=== PATIENT | male | born 1955 | race Caucasian/White ===

== ENCOUNTER → 2021-02-20 10:24 | Outpatient (CLI) | payer BC, SELFPAY | PROVIDERS: Visit Provider Nurse Practitioner | DX: Z20.822 Contact with and (suspected) exposure to COVID-19 (principal) | CPT/HCPCS: C9803; U0003; U0005 ==

== ENCOUNTER 2021-08-29 15:09 | Emergency (ER) | payer BC, SELFPAY ==
[2021-08-29 15:26] VITALS: BP 121/66; PULSE 78; RESP 16; TEMP 36.8; O2SAT 95; BMI 34.8
--- NOTE | 2021-08-29 15:39 | HMH.EDUTC ---
[facility] [place] Disposition Clinical Impression: Exposure to COVID-19 virus Disposition: Home, Self-Care Condition on Discharge: Good Instructions: DI for COVID-19 (Suspected or Confirmed ), Preventing the Spread of Coronavirus Discharge Instructions Additional Instructions: Drink plenty of fluids. Take tylenol for pain or fever. Return if you begin to have difficulty breathing or have any worsening concerns. Follow up with your regular doctor. GO TO THE ER FOR ANY WORSENING SYMPTOMS Quarantine until you know the results of your covid-19 test. If it is positive, the health department should call you and give you further instructions about your length of Quarantine and other things. Notify your school or workplace of your results and follow their instructions regarding return to work/school. Referrals: Manpreet Mendoza MD [Primary Care Provider] - Time of Disposition: 15:44 Medical Decision Making - Medical Records Medical records reviewed: No: I reviewed the patient's medical records. - [place] Inquiry Pt receiving controlled substance: No Vital Signs: 08/29/21 15:26 08/29/21 15:46 Temperature 98.3 F 98.3 F Temperature Source Oral Oral Pulse Rate 78 Pulse Rate [Left] 78 Respiratory Rate 16 16 Blood Pressure 121/66 Blood Pressure [Right Arm] 121/66 Blood Pressure Mean [Right Arm] 84 Blood Pressure Source Automatic Cuff 02 Sat by Pulse Oximetry 95 Oxygen Delivery Method Room Air Orders (Tests/Meds): ORDERS Category Date Time Status Covid-19 Nasal PCR ([facility]) Routine Lab 08/29/21 15:27 Received [facility] [place] HPI - General Stated complaint: coivid test,cold Time Seen by Provider: 08/29/21 15:39 Description of Symptoms (Recalled from Triage Doc. by RN): patient comes in for a covid test patient was exposed by daughter who tested positive this am HEENT Symptoms (Recalled from RN notes): No Resp Symptoms (Recalled from RN notes): No Skin Symptoms (Recalled from RN notes): No MS Symptoms (Recalled from RN notes): No Functional Status (Recalled from RN notes): wnl - History of Present Illness Provider Complaint: He states that he has a person in his household that has tested positive for covid-19. He denies any significant symptoms so far, but he has felt like he is getting a cold. He denies any shortness of breath and chest congestion. He has been fully vaccinated. - Related Data Allergies Allergy/AdvReac Type Severity Reaction Status Date / Time No Known Allergies Allergy Verified 08/29/21 15:46 - Worker's Comp Is this a Worker's Comp case?: No [facility] History - Hepatitis A Screen Attestation statement:: This patient has been screened for Hepatitis A risk factors. I have reviewed the patient's past medical history: Yes ROS Obtained: Yes All systems reviewed & no additional complaints - Constitutional Constitutional: Reports as per HPI - Eyes Eyes: Denies eye discharge - ENT Ears, Nose, Mouth, and Throat: Reports as per HPI - Cardiovascular Cardiovascular: Denies chest pain - Respiratory Respiratory: Denies chest congestion, Denies cough, Denies dyspnea, Denies stridor, Denies wheezing - Gastrointestinal Gastrointestingal: Reports: system reviewed and no additional complaints, except as docu. Denies: abdominal pain, diarrhea, nausea, vomiting - Musculoskeletal Musculoskeletal: Denies joint pain Physical Exam - General General appearance: alert, in no apparent distress - Head Head exam: atraumatic, normocephalic, normal inspection - Eye Eye exam: Present: normal appearance, PERRL, EOMI - ENT ENT exam: Present: normal exam, normal oropharynx, mucous membranes moist, TM's normal bilaterally, normal external ear exam - Neck Neck exam: Present: normal inspection, full ROM, trachea midline. Absent: meningismus, lymphadenopathy - Chest Chest inspection: Present: normal inspection, symmetric chest wall rise. Absent: tenderness - Respirat
[2021-08-29 15:46] VITALS: BP 121/66; PULSE 78; RESP 16; TEMP 36.8; O2SAT 95
== END 2021-08-29 15:48 | disposition home or self-care (01) ==
PROVIDERS: Emergency Provider Nurse Practitioner Family; PCP Family Medicine
DX: Z20.822 Contact with and (suspected) exposure to COVID-19 (principal); J00 Acute nasopharyngitis [common cold]
CPT/HCPCS: 99212; C9803; G0463; U0003; U0005

== ENCOUNTER → 2022-11-06 09:26 | Outpatient (CLI) | payer MEDICARE, OTHER, SELFPAY ==
--- NOTE | 2022-11-06 09:32 | XR_ITS ---
FINAL REPORT CLINICAL HISTORY: OSTEOPOROSIS COMPARISON: None FINDINGS: Using L1-4, the bone mineral density of the spine is 0.878 g/cm2, corresponding to T-score of -1.9, consistent with low bone density. Using the left hip, the bone mineral density of the femoral neck is 0.594 g/cm2, corresponding to a T-score of -2.5, consistent with osteoporosis. Using the right hip, the bone mineral density of the femoral neck is 0.619 g/cm2, corresponding to a T-score of -2.3, consistent with low bone density. FRAX not reported because T score for left hip is at or below -2.5. NOTE: T-score: Standard deviation compared with peak bone mass of young adult mean. *Following the recommendations of the International Society of Bone densitometry, classification of hip BMD is based on the lower of two T-scores; total hip or femoral neck. IMPRESSION: Diminished bone mineral density consistent with osteoporosis. Reviewed, Interpreted and Dictated by Reg Howard III, MD Transcribed by Xenia Marina Authenticated and [facility]
== END ==
PROVIDERS: PCP Family Medicine; Visit Provider Internal Medicine
DX: M81.0 Age-related osteoporosis without current pathological fracture (principal)
CPT/HCPCS: 77080

== ENCOUNTER 2024-02-29 09:58 | Outpatient (RCR) | payer MEDICARE, OTHER, SELFPAY | END 2024-02-29 23:59 | disposition home or self-care (01) | LOC: OT 09:58 | PROVIDERS: PCP Family Medicine; Visit Provider Family Medicine | DX: M25.512 Pain in left shoulder (principal); M75.102 Unspecified rotator cuff tear or rupture of left shoulder, not specified as traumatic | CPT/HCPCS: 97166; 97530 ==

== ENCOUNTER 2025-01-05 09:19 | Outpatient (CLI) | payer MEDICARE, SELFPAY ==
--- OUTSIDE RECORDS SUMMARY | 2025-01-05 09:22 | XMS_ITS | Data Portability ---
Author Organization [facility] [place] JULIETTE RossS [place] CLOSED Address [address] [place] [address] Care Team Providers Care Gauge Controller Name Role Phone LENARD LU Primary Care Provider Assessment Encounter Date Assessment Date Assessment LastModified by Organization Details LastModified Time 04/16/2021 04/16/2021 PREOPERATIVE DIAGNOSES: Male stress urinary incontinence, previous artificial urinary sphincter placement and postoperative urinary retention. POSTOPERATIVE DIAGNOSIS: Erosion of artificial urinary sphincter. PROCEDURE: Flexible cystoscopy under local MAC. SURGEON: Geoff Damon MD ANESTHESIA: Sedation. INDICATIONS: Patient, approximately 6 weeks ago, underwent placement of artificial urinary sphincter. He has been in retention postoperatively. He was brought to the operating room for further assessment. He recently has noticed some redness overlying his right scrotum and pump area. OPERATIVE NOTE: After satisfactory sedation, he was carefully placed in the lithotomy position. His indwelling catheter was removed and a flexible cystoscope introduced. Unfortunately, he has readily visualized cuff erosion anteriorly in his bulbous urethra. Scope was withdrawn. A 0.035 Sensor wire was advanced into the bladder and a 16-Romansh Councill catheter placed over this and into the bladder. The balloon was inflated. We will arrange for extrication of his artificial sphincter. [email or web address] Not available 04/23/2021 01:52:17 Plan of Treatment Reminders Order Date Submit Date Provider Last Modified By Organization Details Last Modified Time Details Appointments None recorded. Lab urinalysis panel, auto 2021 022 [email or web address] [facility], [address], [place], [address], 20:29:36 Referral None recorded. Procedures None recorded. Surgeries None recorded. Imaging None recorded. Medication Orders None recorded. Patient TargetsNo targets recorded. Patient InstructionsNo instructions recorded. Reason for Referral None Reported. Results Created Date Observation Date Name Description Value Unit Range Abnormal Flag Note LastModifiedBy Organization Detail LastModifiedTime 05/21/1905/20/2021 urina lysis panel , auto Unknown Analyte Clean Catch Not Available [facility] [address], [place], [address], 05/20/2021 16:29:25 05/21/19 22 05/20/2021 urina lysis panel , auto Unknown Analyte Yellow Not Available [facility] [address], [place], [address], 05/20/2021 16:29:25 05/21/19 22 05/20/2021 urina lysis panel , auto Unknown Analyte Clear Not Available [facility] [address], [place], [address], 05/20/2021 16:29:25 05/21/19 22 05/20/2021 urina lysis panel , auto Unknown Analyte 1.020 Not Available [facility] [address], [place], [address], 05/20/2021 16:29:25 05/21/19 22 05/20/2021 urina lysis panel , auto Unknown Analyte 1.003- 1.035 Not Available [facility] [address], [place], [address], 05/20/2021 16:29:25 05/21/19 22 05/20/2021 urina lysis panel , auto Unknown Analyte 5.0 Not Available [facility] [address], [place], [address], 05/20/2021 16:29:25 05/21/19 22 05/20/2021 urina lysis panel , auto Unknown Analyte 5.0-8. 0 Not Available [facility] [address], [place], [address], 05/20/2021 16:29:25 05/21/19 22 05/20/2021 urina lysis panel , auto Unknown Analyte Negati ve Not Available [facility] [address], [place], [address], 05/20/2021 16:29:25 05/21/19 22 05/20/2021 urina lysis panel , auto Unknown Analyte Negati ve Not Available [facility] [address], [place], [address], 05/20/2021 16:29:25 05/21/19 22 05/20/2021 urina lysis panel , auto Unknown Analyte Negati ve Not Available [facility] [address], [place], [address], 05/20/2021 16:29:25 05/21/19 22 05/20/2021 urina lysis panel , auto Unknown Analyte Negati ve Not Available [facility] [address], [place], [address], 05/20/2021 16:29:25 05/21/19 22 05/20/2021 urina lysis panel , auto Unknown Analyte Negati ve Not Available [facility] [address], [place], [address], 05/20/2021 16:29:25 05/21/19 22 05/20/2021 urina lysis panel , auto Unknown Analyte Negati ve Not Available [facility] [address], [place], [address], 05/20/2021 16:29:25 05/21/1905/20/2021 urina lysis panel , auto Unknown Analyte >1000 mg/dl Not Available [facility] [address], [place], [address], 05/20/2021 16:29:25 05/21/19 22 05/20/2021 urina lysis panel , auto Unknown Analyte Normal Not Available [facility] [address], [place], [address], 05/20/2021 16:29:25 05/21/19 22 05/20/2021 urina lysis panel , auto Unknown Analyte Negati ve Not Available [facility] [address], [place], [address], 05/20/2021 16:29:25 05/21/19 22 05/20/2021 urina lysis panel , auto Unknown Analyte Negati ve Not Available [facility] [address], [place], [address], 05/20/2021 16:29:25 05/21/19 22 05/20/2021 urina lysis panel , auto Unknown Analyte Normal Not Available [facility] [address], [place], [address], 05/20/2021 16:29:25 05/21/19 22 05/20/2021 urina lysis panel , auto Unknown Analyte Normal 1 mg/dl Not Available [facility] [address], [place], [address], 05/20/2021 16:29:25 05/21/19 22 05/20/2021 urina lysis panel , auto Unknown Analyte Negati ve Not Available [facility] [address], [place], [address], 05/20/2021 16:29:25 05/21/19 22 05/20/2021 urina lysis panel , auto Unknown Analyte Negati ve Not Available [facility] [address], [place], [address], 05/20/2021 16:29:25 05/21/19 22 05/20/2021 urina lysis panel , auto Unknown Analyte Negati ve Not Available [facility] [address], [place], [address], 05/20/2021 16:29:25 05/21/19 22 05/20/2021 urina lysis panel , auto Unknown Analyte Negati ve Not Available [facility] [address], [place], [address], 05/20/2021 16:29:25 Result Notes None recorded. Procedures Surgical History Date Name Laterality Status Provider Name and Address Organization Details Recorded Time 02/18/202 2 REMOVAL OF INFLATABLE URETHRAL/BLADDE R NECK SPHINCTER, INCLUDING PUMP, RESERVOIR, AND CUFF (SURG) completed [facility] 04/21/2021 10:02:51 1 INSERTION OF INFLATABLE BLADDER CANAL (URETHRA) OR BLADDER NECK SPHINCTER (SURG) completed [facility] 02/25/2021 09:12:07 8 PROCTECTOMY, LAPAROSCOPIC, ROBOTIC ASSISTED (SURG) completed Marlene Anna Marie [facility] 12/03/2017 09:57:50 Imaging Results None recorded. Procedure Notes None recorded. Medical Equipment None Reported. Allergies No known drug allergies Medications Name Sig Start Date Stop Date Status Note LastModified by Organization Details LastModified Time pioglitazon e 15 mg tablet active Not Available Not Available Not Available oxybutynin chloride ER 15 mg tablet,exte nded release 24 hr TAKE 1 TABLET BY MOUTH EVERY DAY 2019 active Not Available Not Available Not Avai lable atorvastati n 10 mg tablet active Not Available Not Available Not Available sulfamethox azole 400 mg-trimetho prim 80 mg tablet TAKE 1 TABLET BY MOUTH TWICE DAILY active Not Available Not Available No t Available hydrocodone 5 mg-acetamin ophen 325 mg tablet active Not Available Not Available No t Available fluconazole 200 mg tablet active Not Available Not Available Not Available glipizide ER 10 mg tablet, extended release 24 hr active Not Available Not Available Not Available meloxicam 15 mg tablet TAKE 1 TABLET BY MOUTH ONCE DAILY FOR 30 DAYS active Not Available Not Available No t Available pioglitazon e 45 mg tablet active Not Available Not Available Not Available ciprofloxac in 500 mg tablet 09/09 completed Not Available Not Available Not Available sulfamethox azole 800 mg-trimetho prim 160 mg tablet active Not Available Not Available Not Available terbinafine HCl 250 mg tablet active Not Available Not Available Not Available glipizide ER 2.5 mg tablet, extended release 24 hr active Not Available Not Available Not Available hydrocodone 7.5 mg-acetamin ophen 325 mg tablet TAKE 1 TABLET BY MOUTH EVERY 4 HOURS NEEDED FOR PAIN (MODERATE 4-6) active Not Available Not Available No t Available pantoprazol e 40 mg tablet,dave yed release TAKE 1 TABLET BY MOUTH ONCE DAILY active Not Available Not Available No t Available docusate sodium 100 mg capsule TAKE 1 CAPSULE BY MOUTH ONCE DAILY active Not Available Not Available No t Available cefuroxime axetil 500 mg tablet TAKE 1 TABLET BY MOUTH EVERY 12 HOURS 05/20 completed Not Available Not Available Not Available levofloxaci n 500 mg tablet 05/20 completed Not Available Not Available Not Available pioglitazon e 30 mg tablet TAKE 1 TABLET BY MOUTH EVERY DAY active Not Available Not Available No t Available metformin ER 500 mg tablet,exte nded release 24 hr active Not Available Not Available Not Available metoclopram celso 10 mg tablet TAKE ONE TABLET BY MOUTH BEFORE MEALS active Not Available Not Available No t Available amoxicillin 875 mg-potassiu m clavulanate 125 mg tablet TAKE 1 TABLET BY MOUTH EVERY 12 HOURS FOR 14 DAYS 05/20 completed Not Available Not Available Not Available tobramycin 0.3 %-dexametha sone 0.1 % eye drops,suspe nsion active Not Available Not Available Not Available Atripla 600 mg-200 mg-300 mg tablet active Not Available Not Available Not Available fenofibrate nanocrystal lized 145 mg tablet active Not Available Not Available No t Available Januvia 50 mg tablet active Not Available Not Available No t Available Januvia 100 mg tablet TAKE 1 TABLET BY MOUTH EVERY DAY active Not Available Not Available No t Available BD Ultra-Fine Jillian Pen Needle 32 gauge x 5/32 USE TWICE DAILY DIRECTED active Not Available Not Available No t Available Suprep Bowel Prep Kit 17.5 gram-3.13 gram-1.6 gram oral solution active Not Available Not Available Not Available Xarelto 20 mg tablet TAKE 1 TABLET BY MOUTH EVERY DAY WITH FOOD active Not Available Not Available No t Available Myrbetriq 50 mg tablet,exte nded release active Not Available Not Available Not Available Victoza 3-Tod 0.6 mg/0.1 mL (18 mg/3 mL) subcutaneou s pen injector INJECT 1.2 MG UNDER THE SKIN ONCE DAILY active Not Available Not Available No t Available Trulicity 0.75 mg/0.5 mL subcutaneou s pen injector Inject 0.5 mL every week by subcutane ous route. active Not Available Not Available No t Available Genvoya 150 mg-150 mg-200 mg-10 mg tablet active Not Available Not Available Not Available BD Ultra-Fine Micro Pen Needle 32 gauge x 1/4 active Not Available Not Available Not Available Vitals Date Recorded Body height Body mass index (BMI) Body weight Provider Name and Address Organization Details Last Updated DateTime 04/04/2021 170.18 cm 33.2 kg/m2 66134.58 g [facility] 04/04/2021 14:06:47 Date Recorded Body height Body mass index (BMI) Body weight Provider Name and Address Organization Details Last Updated DateTime 04/25/2021 170.18 cm 33.2 kg/m2 24316.58 g [facility] 04/25/2021 11:35:25 Date Recorded Body height Body mass index (BMI) Body weight Provider Name and Address Organization Details Last Updated DateTime 05/05/2021 170.18 cm 33.2 kg/m2 52308.58 g [facility] 05/05/2021 13:17:11 Date Recorded Body height Body mass index (BMI) Body weight Provider Name and Address Organization Details Last Updated DateTime 05/20/2021 170.18 cm 33.2 kg/m2 70668.58 g [facility] 05/20/2021 16:28:52 Social History Question Answer Notes LastModified by Organizat ion Details LastModified Time Tobacco Smoking Status Never Smoker Liliya Mcbride [facility] 08/04/2019 15:33:11 How Much Tobacco Do You Chew? None rosa m Information not available 08/04/2019 Marital Status rosa m Informat ion not available 08/04/2019 Has Tobacco Cessation Counseling Been Provided? No [email or web address] Information not available 03/03/2021 Have You Recently Traveled Abroad? No [email or web address] Information not available 03/03/2021 Sex: Unknown Functional Status Question Answer Note LastModified by Organizat ion Details LastModified Time Do you use any illicit or recreational drugs? No [email or web address] Information not available 03/03/2021 Do you or have you ever used any other forms of tobacco or nicotine? No [email or web address] Information not available 03/03/2021 What is your level of alcohol consumption? None rosa m Information not available 08/04/2019 Mental Status None recorded. Family History Nothing Reported. Medical History Condition Response Cancer Prostate Y Past Encounters Encounter ID Performer Location Encounter Start Date Encounter Closed Date Diagnosis/Indication Diagnosis SNOMED-CT Code Diagnosis ICD10 Code Diagnosis IMO Codes Diagnosis Note [id number] GEOFF DAMON MD SURGERY SCHEDULE [address] [place] [address] 10/13/2017 07:51:48 10/13/2017 07:53:56 [id number] MD JOSE ST[facility] [address] [place] [address] 12/20/2017 14:42:17 12/20/2017 16:46:12 Malignant neoplasm of prostate 436398679 C61 He will keep his appointmen t to see me in [place] tomorrow following his cystogram. A copy of this note should be forwarded to [facility] [id number] GEOFF DAMON MD SURGERY SCHEDULE [address] [place] [address] 06/22/2018 09:16:09 06/22/2018 09:20:41 [id number] MD JOSE [facility] [address] [place] [address] 08/04/2019 15:15:07 08/04/2019 15:57:30 History of malignant neoplasm of prostate 111483480 Z85.46 follow-up 6 months with repeat PSA Male urina ry stress incontinence 492747286 N39.3 plan as above [id number] MD JOSE ST[facility] [address] [place] [address] 02/07/2020 15:51:57 02/07/2020 16:57:49 History of malignant neoplasm of prostate 061640310 Z85.46 follow-up 6 months with repeat PSA Male urina ry stress incontinence 051032447 N39.3 plan as above [id number] MD JOSE ST[facility] [address] 09/09/2020 16:24:20 09/09/2020 16:54:33 History of malignant neoplasm of prostate 836709445 Z85.46 follow-up 6 months with repeat PSA Male urina ry stress incontinence 202012134 N39.3 plan as above [id number] GEOFF DAMON MD [facility] [address] [address] 01/27/2021 13:53:36 02/05/2021 11:38:19 History of malignant neoplasm of prostate 448697508 Z85.46 follow-up 6 months with repeat PSA Urinary incontinence 165 034659 R32 arrange placement of AMS [facility] [id number] GEOFF DAMON MD [facility] [address] [place] [address] 03/03/2021 11:06:17 03/03/2021 14:21:33 Male urinary stress incontinence 487198395 N39.3 plan as above, follow-up 3 weeks [id number] GEOFF DAMON MD [facility] [address] [address] 04/04/2021 13:28:18 04/04/2021 14:55:20 Male urinary stress incontinence 602834890 N39.3 plan as above, follow-up 3 weeks History of malignant neoplasm of prostate 777689077 Z85.46 follow-up 6 months with repeat PSA [id number] GEOFF DAMON MD SURGERY SCHEDULE [address] [place] [address] 04/16/2021 07:19:30 04/16/2021 07:21:34 [id number] GEOFF DAMON MD [facility] [address] [address] 04/25/2021 10:02:22 04/25/2021 11:32:59 Urinary incontinence 026395665 N39.498 Status post removal of artificial urinary sphincter 1 week ago. Follow-up one week for huma d catheter removal, We will need to extend his work Since 4 at least 3 more weeks [id number] MD JOSE ST[facility] [address] [place] [address] 05/05/2021 12:00:00 05/05/2021 13:45:21 History of malignant neoplasm of prostate 534693679 Z85.46 follow-up 3 weeks Male urina ry stress incontinence 850511196 N39.3 plan as above, follow-up 3 weeks [id number] MD JOSE STOVER [facility] [address] [place] [address] 05/20/2021 15:39:00 05/20/2021 17:29:45 History of malignant neoplasm of prostate 673928400 Z85.46 follow-up 2 months with PSA, He has return to work without restrictio ns. He may resume riding his bicycle. Male urina ry stress incontinence 223307565 N39.3 plan as above, follow-up 2 months Health Concerns Section Related Observation LastModified by Organization Detai ls LastModified Time None Recorded Concern Status LastModified by Organization Details LastModified Time None Recorded Advance Directives Directive None Recorded Payers Insurance Date Sequence Insurance Name Policy Number Policy Huff Covered Member ID Huff Member ID Guarantor Name 03/17/2021 1 [place] Shin Valdez [id number] Shin Valdez 05/28/2021 1 [place] [id number] Shin Valdez [id number] Shin Valdez Notes Date Note Type Note Provider Name and Address Organization Details Recorded Time 04/04/2021 text/html patient is here in follow-up of artificial urinary sphincter placement several weeks ago. Postoperatively he had urinary retention and discharged home with the catheter. He was unable to void immediately postoperatively. Following that he developed shortness of breath and was admitted to [facility] with bilateral pulmonary emboli. He is feeling better today. He has no shortness of breath. All scrotal swelling has resolved. I placed 100 mL of water in his bladder and remove this catheter. He was able to void with the sphincter open repair of an activated his sphincter. Tediously went over again the use and mechanics of his artificial urinary sphincter. He seems comfortable GEOFF DAMON MD [address] [place], [address], [facility] 04/04/2021 15:20:01 04/25/2021 text/html Patient is here for 1 week follow-up of removal of artificial urinary sphincter secondary to cuff erosion. He still has Rincon catheter in place. His scrotal wound has nearly closed. He is having some clear drainage from his perineal incision. All wounds were inspected. I suggest we leave his Rincon catheter for 1 more week. He has no erythema. GEOFF DAMON MD [address] [place], [address], [facility] 04/28/2021 06:58:04 05/05/2021 text/html Patient is now 2.5 weeks following artificial urinary sphincter removal for resolution. He has a small wound in his scrotum which was left open. He has a Rincon catheter still in place. He has had no further drainage from his perineal incision. Catheter was removed without difficulty. He knows to notify me if he has fever or swelling. He will return to work next week. GEOFF DAMON MD [facility] [place], [address], [facility] 05/13/2021 11:19:33 05/20/2021 text/html Patient is here for 2 week follow-up. He is now one month following removal of artificial urinary sphincter for urethral erosion and scrotal infection. He is 3-1/2 years following robotic prostatectomy. As expected his incontinence has persisted. He is voiding. He has been using a Zendejas clamp during the day. His urine today is unremarkable. All incisions including his perineal incision appears to have healed without incident. All were inspected. We discussed other options regarding management of his incontinence. He was given a sample of external urinary catheter. He will contact me if this is effective. [place], [address], [facility] 05/20/2021 20:30:31
--- NOTE | 2025-01-05 09:23 | XR_ITS ---
FINAL REPORT TECHNIQUE: Bone densitometry calculations of the lumbar spine and bilateral hips were obtained. CLINICAL HISTORY: SCREENING PRIOR 2022 COMPARISON: 11/06/2022 FINDINGS: Using L1-4, the bone mineral density of the spine is 0.949 g/cm2, corresponding to T-score of -1.3. The bone mineral density change versus baseline is 8.1%. Using the left hip, the bone mineral density of the femoral neck is zero 6.22 g/cm2, corresponding to a T-score of -2.3. The bone mineral density change versus baseline is 4.8%. Using the right hip, the bone mineral density of the femoral neck is 0.680 mg/cm?, corresponding to a T-score of -1.8. The bone mineral density change versus baseline is 9.9%. NOTE: T-score: Standard deviation compared with peak bone mass of young adult mean. *Following the recommendations of the International Society of Bone densitometry, classification of hip BMD is based on the lower of two T-scores; total hip or femoral neck. IMPRESSION: Diminished bone mineral density of the lumbar spine and bilateral hips consistent with osteopenia, improved since the prior DEXA of 11/06/2022. Reviewed, Interpreted and Dictated by Mando Mcclellan MD Transcribed by Eryn Parmar Authenticated and [facility]
== END 2025-01-05 23:59 | disposition home or self-care (01) ==
PROVIDERS: PCP Family Medicine; Visit Provider Family Medicine
DX: M81.0 Age-related osteoporosis without current pathological fracture (principal); R93.7 Abnormal findings on diagnostic imaging of other parts of musculoskeletal system
CPT/HCPCS: 77080